=== PATIENT | male | born 1950 | race Caucasian/White ===

== ENCOUNTER 2024-12-09 09:19 | Inpatient (IN) | payer OTHER ==
[~2024-12-09] VITALS: Ht 180.3 cm; Wt 88.0 kg
[2024-12-09] VITALS (9 sets, daily range): BP systolic 96–147; BP diastolic 68–93; PULSE 61–89; RESP 10–21; TEMP 98–98.4; O2SAT 96–98
[2024-12-09] MEDS ORDERED: SODIUM CHLORIDE FLUSH 10 ML SYR IV PRN (09:45)
[2024-12-09 09:59] LABS: BASOPHILS % 1.2 % (0.0-1.0); EOSINOPHILS % 3.4 % (0.0-6.0); LYMPHOCYTES % 28.5 % (18.0-39.1); MONOCYTES % 10.6 % (4.4-11.3); NEUTROPHILS % 56.1 % (38.7-80.0); RED CELL DISTRIBUTION WIDTH 13.0 % (11.7-14.4)
[2024-12-09] MEDS: DILTIAZEM HCL 5 MG/ML 5 ML VIAL IV ONE (10:25)
[2024-12-09] MEDS ORDERED: ONDANSETRON HCL INJ 2MG/ML 2ML 2 MG/ML VIAL IV PRN (10:30)
[2024-12-09] MEDS ORDERED: SODIUM CHLORIDE FLUSH 10 ML SYR INJ PRN (10:30)
[2024-12-09 10:31] LABS: EST GLOMERULAR FILTRATION RATE 66.0 ML/MIN (>=60)
[2024-12-09] MEDS: ENOXAPARIN SODIUM INJ 100 MG/ML SYR SC STA (10:32)
[2024-12-09] MEDS ORDERED: AMIODARONE 900MG 500 ML IV SCH (10:55)
[2024-12-09] MEDS: MUPIROCIN 2% OINT 22 GM TUBE TOP SCH (11:15)
[2024-12-09] MEDS: SODIUM CHLORIDE 0.9% 1000ML 1,000 ML IV ONE (11:39)
[2024-12-09] MEDS: AMIODARONE HCL 150 MG/100 ML BAG IV ONE (12:31)
[2024-12-09] MEDS ORDERED: AMIODARONE 900MG 500 ML IV ONE (12:45)
[2024-12-09] MEDS: DILTIAZEM HCL 60 MG TAB PO SCH (18:02)
[2024-12-09] MEDS ORDERED: ROSUVASTATIN CA10 MG (19:40)
[2024-12-09] MEDS ORDERED: LOSARTAN POTASS25 MG (19:40)
[2024-12-09] MEDS ORDERED: OMEPRAZOLE20 MG (19:40)
[2024-12-10] VITALS (11 sets, daily range): BP systolic 120–167; BP diastolic 79–102; PULSE 64–115; RESP 11–22; TEMP 98.2–98.7; O2SAT 97–100
[2024-12-10 06:47] LABS: BASOPHILS % 0.7 % (0.0-1.0); EOSINOPHILS % 3.3 % (0.0-6.0); LYMPHOCYTES % 23.6 % (18.0-39.1); MONOCYTES % 10.8 % (4.4-11.3); NEUTROPHILS % 61.4 % (38.7-80.0); RED CELL DISTRIBUTION WIDTH 12.9 % (11.7-14.4)
[2024-12-10 06:59] LABS: EST GLOMERULAR FILTRATION RATE 76.0 ML/MIN (>=60)
[2024-12-10] MEDS: METOPROLOL TARTRATE 25 MG TAB PO SCH ×2 (08:00→15:30)
[2024-12-10] MEDS ORDERED: METOPROLOL TARTRATE INJ 1 MG/ML VIAL IV PRN (08:15)
[2024-12-10] MEDS ORDERED: IRBESARTAN 150 MG TAB PO SCH (09:00)
[2024-12-10] MEDS ORDERED: HYDROCHLOROTHIAZIDE 25 MG TAB PO SCH (09:00)
[2024-12-10] MEDS ORDERED: ENOXAPARIN INJ 80 MG/0.8 ML SYR SC SCH (09:00)
[2024-12-10] MEDS ORDERED: AMIODARONE 900MG 900 MG in Premix Bag 1 BAG IV SCH (17:00)
[2024-12-10] MEDS: ENOXAPARIN INJ 80 MG/0.8 ML SYR SC SCH (18:32)
[2024-12-10] MEDS: AMIODARONE 900MG 500 ML IV SCH (18:56)
[2024-12-11] VITALS: BP 131/88; PULSE 87; RESP 18; TEMP 98.6; O2SAT 99
[2024-12-11 04:00] VITALS: BP 145/93; PULSE 98; RESP 20; TEMP 98; O2SAT 98
[2024-12-11 07:45] VITALS: BP 134/96; PULSE 96; RESP 17; TEMP 99; O2SAT 98
[2024-12-11 08:00] VITALS: BP 134/96; PULSE 96; RESP 17; TEMP 99; O2SAT 98
[2024-12-11 08:43] VITALS: BP 134/96; PULSE 96
[2024-12-11] MEDS: METOPROLOL SUCCINATE 50 MG TAB XL PO SCH (08:43)
[2024-12-11] MEDS: APIXABAN 5 MG TABLET PO SCH (08:43)
[2024-12-11] MEDS: AMIODARONE HCL 200 MG TAB PO SCH (08:44)
[2024-12-11] MEDS ORDERED: ELIQUIS5 MG PO (09:17)
[2024-12-11] MEDS ORDERED: AMIODARONE HCL200 MG PO (09:17)
[2024-12-11] MEDS ORDERED: TOPROL XL50 MG PO (09:17)
== END 2024-12-11 10:05 | disposition home or self-care (01) | DRG 310 ==
LOC: ER 09:43 → ERHOLD 10:31 → ICU 19:15
PROVIDERS: ADMIT Family Medicine; ATTEND Family Medicine
DX: I48.92 Unspecified atrial flutter (principal); I48.91 Unspecified atrial fibrillation; I10 Essential (primary) hypertension; E78.5 Hyperlipidemia, unspecified; R00.0 Tachycardia, unspecified; K21.00 Gastro-esophageal reflux disease with esophagitis, without bleeding; Z79.01 Long term (current) use of anticoagulants; Z79.899 Other long term (current) drug therapy
CPT/HCPCS: 36415; 71045; 80053; 82550; 83735; 84439; 84443; 84484; 85025; 93005; 93306; 94760; 99284; J1650; J7030